=== PATIENT | male | born 1990 | race Native Hawaiian/Other Pacific Islander ===

== ENCOUNTER 2016-04-09 10:20 | Inpatient (IN) | payer OTHER ==
[~2016-04-09 10:20] MED LIST: ASCO500T18 PO; CLON0.5T36 PEG; DIVA125C PEG; LEVETIRACET100 MG/ML PEG; LEVETIRACETA500 M1 PO; LEVETIRACETA500 MG PO; LEVOCARNITINE 330 MG PO; LORAZEPAM1 MG PO; LORAZEPAM2 MG/ML OR; MAG OXIDE400 MG PEG; MAGNESIUM400 MG PO; MEGE40TA32 PEG; METAMUCIL28 % PO; MULTIVITAMI PEG; OMEP40CA PEG; TRILEPTAL300 MG/5 M OR; TRILEPTAL300 MG/5 M PEG; TUMS500 MG PO; VALPROIC A250 MG/5 M OR; VIMPAT100 MG PEG; VIMPAT200 M1 PO; VITAMIN C500 MG PEG; VITAMIN D1000 UNIT PO; ZINC50 M1 PO
== END 2016-05-10 08:00 | disposition still patient (30) ==
LOC: PAVC 10:20
PROVIDERS: ADMIT Internal Medicine
DX: Z51.89 Encounter for other specified aftercare (principal)

== ENCOUNTER 2016-05-10 09:00 | Inpatient (IN) | payer OTHER | END 2016-06-10 12:37 | disposition still patient (30) | LOC: PAVC 09:00 | PROVIDERS: ADMIT Internal Medicine | DX: Z51.89 Encounter for other specified aftercare (principal) ==

== ENCOUNTER 2016-05-15 04:38 | Outpatient (CLI) | payer OTHER ==
[2016-05-15 06:14] LABS: PLATELET COUNT 144 K/uL (142-355)
[2016-05-15 06:40] LABS: POTASSIUM 4.2 mmol/L (3.6-5.2); SODIUM 136 mmol/L (136-145)
== END 2016-05-15 05:38 | disposition home or self-care (01) ==
LOC: LAB 04:38
PROVIDERS: Internal Medicine
DX: Z79.899 Other long term (current) drug therapy (principal); Z51.81 Encounter for therapeutic drug level monitoring
CPT/HCPCS: 36415; 80053; 80164; 82542; 85027

== ENCOUNTER 2016-06-10 12:59 | Inpatient (IN) | payer OTHER | END 2016-07-08 13:22 | disposition still patient (30) | LOC: PAVC 12:59 | PROVIDERS: ADMIT Internal Medicine | DX: Z51.89 Encounter for other specified aftercare (principal) ==

== ENCOUNTER 2016-07-08 13:42 | Inpatient (IN) | payer OTHER | END 2016-08-08 08:14 | disposition still patient (30) | LOC: PAVC 13:42 | PROVIDERS: ADMIT Internal Medicine | DX: Z51.89 Encounter for other specified aftercare (principal) ==

== ENCOUNTER 2016-08-08 08:49 | Inpatient (IN) | payer OTHER | END 2016-09-07 10:59 | disposition still patient (30) | LOC: PAVC 08:49 | PROVIDERS: ADMIT Internal Medicine | DX: Z51.89 Encounter for other specified aftercare (principal) ==

== ENCOUNTER 2016-09-07 12:05 | Inpatient (IN) | payer OTHER | END 2016-10-08 10:47 | disposition still patient (30) | LOC: PAVC 12:05 | PROVIDERS: ADMIT Internal Medicine | DX: Z51.89 Encounter for other specified aftercare (principal) ==

== ENCOUNTER 2016-09-25 16:07 | Outpatient (CLI) | payer OTHER | END 2016-09-25 17:20 | disposition home or self-care (01) | LOC: LAB 16:07 | DX: R56.9 Unspecified convulsions (principal) | CPT/HCPCS: 80156; 80164; 80183; 82542 ==

== ENCOUNTER 2016-10-08 11:05 | Inpatient (IN) | payer OTHER | END 2016-11-07 16:10 | disposition still patient (30) | LOC: PAVC 11:05 | PROVIDERS: ADMIT Internal Medicine | DX: Z51.89 Encounter for other specified aftercare (principal) ==

== ENCOUNTER 2016-10-14 18:28 | Outpatient (CLI) | payer OTHER | END 2016-10-14 19:30 | disposition home or self-care (01) | LOC: LAB 18:28 | DX: K94.22 Gastrostomy infection (principal) | CPT/HCPCS: 87070; 87077; 87185; 87205 ==

== ENCOUNTER 2016-11-07 16:37 | Inpatient (IN) | payer OTHER | END 2016-12-08 13:01 | disposition still patient (30) | LOC: PAVC 16:37 | PROVIDERS: ADMIT Internal Medicine | DX: Z51.89 Encounter for other specified aftercare (principal) ==

== ENCOUNTER 2016-11-09 03:41 | Outpatient (CLI) | payer OTHER ==
[2016-11-09 04:34] LABS: POTASSIUM 4.2 mmol/L (3.6-5.2); SODIUM 141 mmol/L (136-145)
== END 2016-11-09 04:45 | disposition home or self-care (01) ==
LOC: LAB 03:41
PROVIDERS: Internal Medicine
DX: D64.89 Other specified anemias (principal); I10 Essential (primary) hypertension; R89.2 Abnormal level of other drugs, medicaments and biological substances in specimens from other organs, systems and tissues; G40.89 Other seizures
CPT/HCPCS: 36415; 80053; 80164; 82542

== ENCOUNTER 2016-11-13 03:48 | Outpatient (CLI) | payer OTHER ==
[2016-11-13 16:53] LABS: PLATELET COUNT 89 K/uL (142-355)
== END 2016-11-13 19:05 | disposition home or self-care (01) ==
LOC: LAB 03:48
PROVIDERS: Internal Medicine
DX: I10 Essential (primary) hypertension (principal); D64.89 Other specified anemias; R89.2 Abnormal level of other drugs, medicaments and biological substances in specimens from other organs, systems and tissues; G40.802 Other epilepsy, not intractable, without status epilepticus
CPT/HCPCS: 85027

== ENCOUNTER 2016-11-14 13:39 | Emergency (ER) | payer OTHER ==
[~2016-11-14] VITALS: Ht 162.6 cm; Wt 65.0 kg
[2016-11-14 13:38] VITALS: BP 123/91; TEMP 97.5
== END 2016-11-14 14:45 | disposition home or self-care (01) ==
LOC: ED 13:39
DX: S00.86XA Insect bite (nonvenomous) of other part of head, initial encounter (principal); S30.861A Insect bite (nonvenomous) of abdominal wall, initial encounter; S80.862A Insect bite (nonvenomous), left lower leg, initial encounter; S80.861A Insect bite (nonvenomous), right lower leg, initial encounter; S70.362A Insect bite (nonvenomous), left thigh, initial encounter; S70.361A Insect bite (nonvenomous), right thigh, initial encounter; W57.XXXA Bitten or stung by nonvenomous insect and other nonvenomous arthropods, initial encounter; Y93.89 Activity, other specified; Y92.128 Other place in nursing home as the place of occurrence of the external cause
CPT/HCPCS: 86787; 99282

== ENCOUNTER 2016-12-02 05:10 | Outpatient (CLI) | payer OTHER | END 2016-12-02 06:10 | disposition home or self-care (01) | LOC: LAB 05:10 | DX: B01.9 Varicella without complication (principal) | CPT/HCPCS: 86787 ==

== ENCOUNTER 2016-12-08 14:13 | Inpatient (IN) | payer OTHER | END 2017-01-08 10:00 | disposition still patient (30) | LOC: PAVC 14:13 | PROVIDERS: ADMIT Internal Medicine | DX: Z51.89 Encounter for other specified aftercare (principal) ==

== ENCOUNTER 2017-01-08 10:34 | Inpatient (IN) | payer OTHER | END 2017-02-07 09:37 | disposition still patient (30) | LOC: PAVC 10:34 | PROVIDERS: ADMIT Internal Medicine | DX: Z51.89 Encounter for other specified aftercare (principal) ==

== ENCOUNTER 2017-02-07 10:02 | Inpatient (IN) | payer OTHER | END 2017-03-10 14:21 | disposition still patient (30) | LOC: PAVC 10:02 | PROVIDERS: ADMIT Internal Medicine ==

== ENCOUNTER 2017-03-10 15:12 | Inpatient (IN) | payer OTHER | END 2017-04-09 10:31 | disposition still patient (30) | LOC: PAVC 15:12 | PROVIDERS: ADMIT Internal Medicine ==

== ENCOUNTER 2017-03-15 11:44 | Outpatient (CLI) | payer OTHER | END 2017-03-15 12:45 | disposition home or self-care (01) | LOC: LAB 11:44 | DX: G40.802 Other epilepsy, not intractable, without status epilepticus (principal) | CPT/HCPCS: 80183 ==

== ENCOUNTER 2017-03-24 11:24 | Outpatient (CLI) | payer OTHER ==
[2017-03-24 11:47] LABS: PLATELET COUNT 161 K/uL (142-355)
[2017-03-24 11:55] LABS: POTASSIUM 4.1 mmol/L (3.6-5.2); SODIUM 139 mmol/L (136-145)
== END 2017-03-24 12:25 | disposition home or self-care (01) ==
LOC: LAB 11:24
PROVIDERS: Internal Medicine
DX: R56.9 Unspecified convulsions (principal)
CPT/HCPCS: 80048; 80164; 81000; 82542; 85027

== ENCOUNTER 2017-04-09 10:59 | Inpatient (IN) | payer OTHER | END 2017-05-10 10:58 | disposition still patient (30) | LOC: PAVC 10:59 | PROVIDERS: ADMIT Internal Medicine ==

== ENCOUNTER 2017-05-10 11:50 | Inpatient (IN) | payer OTHER ==
[2017-06-11] MEDS ORDERED: DOCU PEG (18:24)
[2017-06-11] MEDS ORDERED: KONSYL PEG (18:26)
== END 2017-06-10 11:14 | disposition still patient (30) ==
LOC: PAVC 11:50
PROVIDERS: ADMIT Internal Medicine

== ENCOUNTER 2017-05-11 05:13 | Outpatient (CLI) | payer OTHER ==
[2017-05-11 06:13] LABS: PLATELET COUNT 152 K/uL (142-355)
[2017-05-11 06:42] LABS: POTASSIUM 3.9 mmol/L (3.6-5.2); SODIUM 140 mmol/L (136-145)
== END 2017-05-11 20:23 | disposition home or self-care (01) ==
LOC: LAB 05:13
PROVIDERS: Internal Medicine
DX: R68.89 Other general symptoms and signs (principal); G80.8 Other cerebral palsy
CPT/HCPCS: 36415; 80053; 80164; 82542; 85027

== ENCOUNTER 2017-05-16 15:48 | Outpatient (CLI) | payer OTHER | END 2017-05-16 18:55 | disposition home or self-care (01) | LOC: RAD 15:48 | DX: Z43.1 Encounter for attention to gastrostomy (principal) ==

== ENCOUNTER 2017-05-16 19:02 | Outpatient (CLI) | payer OTHER | END 2017-05-16 21:00 | disposition home or self-care (01) | LOC: RAD 19:02 | DX: Z43.1 Encounter for attention to gastrostomy (principal) ==

== ENCOUNTER 2017-06-10 12:33 | Inpatient (IN) | payer OTHER ==
[2017-06-11] MEDS ORDERED: DOCU PEG (18:24)
[2017-06-11] MEDS ORDERED: KONSYL PEG (18:26)
[2017-06-12] MEDS ORDERED: ORAZINC220 MG OR (11:13)
[2017-06-12] MEDS ORDERED: RANI75SY3 PO (11:15)
[2017-06-12] MEDS ORDERED: CALCIUM + D600 MG PEG (11:18)
[2017-06-12] MEDS ORDERED: MULT1 OR (11:20)
== END 2017-07-08 10:39 | disposition still patient (30) ==
LOC: PAVC 12:33
PROVIDERS: ADMIT Internal Medicine

== ENCOUNTER 2017-06-11 18:04 | Inpatient (IN) | payer OTHER ==
[~2017-06-11] VITALS: Ht 167.6 cm; Wt 56.9 kg
[2017-06-11 18:02] VITALS: BP 125/73; TEMP 99.8
[2017-06-11] MEDS ORDERED: DOCU PEG (18:24)
[2017-06-11] MEDS ORDERED: KONSYL PEG (18:26)
[2017-06-11 19:16] LABS: POTASSIUM 3.9 mmol/L (3.6-5.2)
[2017-06-11 19:20] VITALS: BP 135/71
[2017-06-11 19:36] LABS: PLATELET COUNT 264 K/uL (142-355)
[2017-06-12] VITALS (28 sets, daily range): BP systolic 80–133; BP diastolic 46–90; TEMP 98.1–102.3; Ht 167.6 cm; Wt 56.9 kg
--- NOTE | 2017-06-12 04:43 | NUR ---
06/12/17 AT 0200PT RESTING WITH EYES CLOSED, NO S/S OF PAIN OR DISTRESS NOTED, IV INTACT WITH D5LR AT 150ML/HR, O2 AT 2LPM VIA NC WITH SAT OF 100%, RESP RATE NONLABORED, 16F LUNDBERG PATENT DRAINING TO BEDSIDE WITH CLEAR, LIGHT YELLOW URINE NOTED IN BAG, DEPEND DRY, SEIZURE PRECAUTIONS IN USE, SUCTION AT BEDSIDE, HOB ELEVATED, RAILS UP X3 AND PADDED,WILL MONITOR CLOSELY, BED IN LOW POSITION.
--- NOTE | 2017-06-12 05:59 | NUR ---
PT HAVING SEIZURE AT THIS TIME, LASTED APPROX 10 SECONDS, PT SUCTIONED PRECAUTION, HOB REMAINS ELEVATED, RAILS PADDED, DEPEND DRY, LUNDBERG PATENT DRAINING TO BEDSIDE, IV INTACT TO L WRIST WITH D5LR INFUSING AT 150ML/HR, PT NOW RESTING WITH EYES CLOSED ANDD NO DISTRESS NOTED, WILL MONITOR CLOSELY, RAILS UP X3, BED IN LOW POSITION.
--- NOTE | 2017-06-12 06:19 | NUR ---
06/12/17 AT 0440PT'S AXILLARY TEMP IS 101.9. FACE IS RED. WIPED FACE WITH WET CLOTH. COVERS TAKEN OFF PT AND FAN BLOWING ON PT. SPOKE WITH DR. ZAPATA ABOUT FEVER AND PT HAVING MULTIPLE SEIZURES OVER LAST 1.5 HOURS. 0445 NEW ORDERS. TORADOL 30MG IV X 1 DOSE NOW, TYLENOL 650MG PER RECTUM Q 6 HOURS PRN FEVER, ROCEPHIN 1 GRAM IVPB Q DAY. T.O. R&V DR. ZAPATA/BREANNE BANKS RN.
--- NOTE | 2017-06-12 06:27 | NUR ---
0320PT HAVING SEIZURE, LASTED APPROX 30-45 SECONDS, PRECAUTIONS IN USE, PT SUCTIONED, STAFF REMAIN AT BEDSIDE TO MONITOR CLOSELY, RAILS UP X3, BED IN LOW POSITION, HOB REMAINS ELEVATED.
--- NOTE | 2017-06-12 07:30 | NUR ---
LAB IN FOR BLOOD DRAW,NO SEIZURE ACTIVITY AT THIS TIME.
[2017-06-12 07:49] LABS: PLATELET COUNT 189 K/uL (142-355)
--- NOTE | 2017-06-12 07:55 | NUR ---
DR ZAPATA IN TO SEE PT.NEW ORDERS.
--- NOTE | 2017-06-12 08:00 | NUR ---
PT CONTINUES TO HAVE SEIZURE ACTIVITY LASTING APPROX 30 SEC. Q 45 MIN - 1 HR. PT WITH NOTED JERKING MOTIONS & HR UP TO 140'S AT TIMES BRIEFLY. EYES CLOSE AFTER.
[2017-06-12 08:01] LABS: POTASSIUM 3.2 mmol/L (3.6-5.2)
--- NOTE | 2017-06-12 08:15 | NUR ---
IV 22G INSERTED R FOOT X 1 STICK.
--- NOTE | 2017-06-12 09:21 | NUR ---
PABLO ARMAS FAMILY CALLED TO CK ON PT.PT RESTING QUIETLY AT THIS TIME.
--- NOTE | 2017-06-12 09:35 | NUR ---
RT IN FOR ABG DRAW. PT SEIZED X1 LESS THAN 30 SECONDS.
--- NOTE | 2017-06-12 10:20 | NUR ---
PHONE CALL TO DR PACE.UNABLE TO LEAVE MESSAGE. PT CONTINUES TO HAVE SEIZURE ACTIVITY LASTING LESS THAN 30 SECODS AT THE TIME. TEMP DOWN TO 99.7R.EYES CLOSED.COLOR FLUSHED.
[2017-06-12] MEDS ORDERED: ORAZINC220 MG OR (11:13)
[2017-06-12] MEDS ORDERED: RANI75SY3 PO (11:15)
[2017-06-12] MEDS ORDERED: CALCIUM + D600 MG PEG (11:18)
[2017-06-12] MEDS ORDERED: MULT1 OR (11:20)
--- NOTE | 2017-06-12 11:49 | NUR ---
PT WITH INCREASED SEIZURE ACTIVITY STRONGER & X 2 LASTING < 30 SECONDS. TEMP IS DOWN TO 99.7.
--- NOTE | 2017-06-12 13:00 | NUR ---
TRIED TO CALL DR PACE AGAIN,UNABLE TO LEAVE VOICE MAIL.
--- NOTE | 2017-06-12 14:30 | NUR ---
DR PACE CALLED REPORTED PT'S LABS & SEIZURE ACTIVITY. DR PACE TO BE HERE SOON.
--- NOTE | 2017-06-12 16:02 | NUR ---
PABLO ARMAS/CAREGIVER CALLED TO CK ON PT. DISCUSSED NEUROLOGIST CONSULT. PABLO STATES,DR SU IS HIS NEUROLOGIST. REPORTED TO DR PACE.
--- NOTE | 2017-06-12 16:08 | NUR ---
PT TO CT VIA BED.
--- NOTE | 2017-06-12 16:15 | NUR ---
DR PACE HER TO SEE PT.
--- NOTE | 2017-06-12 16:17 | NUR ---
PT FROM CT VIA BED,STABLE.
--- NOTE | 2017-06-12 18:00 | NUR ---
PT WITH EYES OPEN,LIFTING ARMS,SMILING.
[2017-06-13] VITALS (24 sets, daily range): BP systolic 87–120; BP diastolic 40–81; TEMP 97.4–98.8
--- NOTE | 2017-06-13 02:19 | NUR ---
RESTING WITH EYES CLOSED, NO S/S OF PAIN OR DISTRESS NOTED, IV INTACT TO L WRIST WITH FLUID ONGOING, IV LOCK INTACT TO R FOOT, 16F LUNDBERG PATENT DRAINING TO BEDSIDE, DEPEND DRY, SEIZURE PRECAUTIONS IN USE, FEET ELEVATED ON PILLOWS, REPOSITIONED TO R SIDE, HOB REMAINS ELEVATED, RAILS PADDED, AND SUCTION AT BEDSIDE, PT ON ROOM AIR WITH SATOF %, WILL MONITOR, RAILS UP X3, BED IN LOW POSITION.
--- NOTE | 2017-06-13 02:21 | NUR ---
06/12/17 AT 1935PT LAYING IN BED WITH EYES CLOSED, NO S/S OF PAIN OR DISTRESS, SEIZURE PRECAUTIONS IN USE, HOB ELEVATED, IV SITES INTACT, LUNDBERG PATENT DRAINING TO BEDSIDE WITH CLEAR, LIGHT YELLOW URINE NOTED, FEET ELEVATED ON PILLOWS, RECTAL PROBE IN USE TO MONITOR PT'S TEMP, VITALS BEING MONITORED, PT OPENS EYES TO BLENDING PLANT OPERATOR TOUCHING HIM. WILL MONITOR, RAILS UP X3, BED IN LOW POSITION.
--- NOTE | 2017-06-13 04:35 | NUR ---
LATE ENTRY:06/11/17 AT 2315PT ADMITTED FROM ER FOR INTRACTABLE SEIZURES, CONTRACTURES, CEREBRAL PALSY TO ICU 1. 26 YR OLD RESIDENT OF [place]IN. NO S/S OF PAIN OR DISTRESS NOTED AT THIS TIME, 20G IV INTACT TO R HAND WITH BAG OF NS BROUGHT FROM ER(3RD LITER), 16 F LUNDBERG PATENT DRAINING TO BEDSIDE WITH APPROX 600ML OF CLEAR LIGHT YELLOW URINE NOTED, O2 PLACED AT 2LPM VIA NC, RESP RATE NONLABORED, PT OPENS EYES BUT DOES NOT RESPOND VERBALLY OR FOLLOW COMMANDS, ASPIRATION PRECAUTIONS TAKEN AND ALSO SEIZURE PRECAUTIONS, SIDE RAILS PADDED, SUCTION AT BEDSIDE, FEET ON PILLOW, WILL MONITOR, RAILS UP X3, BED IN LOW POSITION, HOB REMAINS ELEVATED.
--- NOTE | 2017-06-13 04:40 | NUR ---
LATE ENTRY: 06/11/17 AT 2332PT HAVING SEIZURE THAT LASTED APPROX 45 SEC TO 1 MINUTE, PT R ARM STARTED SHAKING AND THEN HEAD TURNED TO R AND REST OF BODY BEGAN TO SHAKE. EYES BLINKING OFTEN. PULSE RATE WAS 120S AND DURING SEIZURE PULSE RATE IN 150S THEN RATE WENT BACK DOWN. 2335 PT NOW RESTING WITH NO DISTRESS OR SEIZURES NOTED. PT SUCTIONED PRECAUTION AND HOB REMAINS IN HIGH ESCOBAR'S. SPINNING AND WINDING SUPERVISOR REMAINS AT BEDSIDE.
--- NOTE | 2017-06-13 04:44 | NUR ---
LATE ENTRY: 06/12/[address] JODI AT BEDSIDE TO CHECK ON PT. 06/12/17 AT 0227PT HAD ANOTHER SEIZURE THAT LASTED APPROX 30-45 SECONDS. PT SUCTIONED, SEIZURE AND ASPIRATION PRECAUTIONS IN USE. WILL MONITOR CLOSELY. 06/12/17 AT 0345PT HAVING ANOTHER SEIZURE THAT LASTED 20 SECONDS, PT SUCTIONED AND REPOSITIONED IN BED AFTER SEIZURE, LAYING WITH HOB IN HIGH ESCOBAR'S AND EYES OPEN, O2 VIA NC WITH SAT OF 96% AFTER SEIZURE, PRECAUTIONS REMAIN IN USE AND PT HAS NO EVIDENT INJURY,WILL CONTINUE TO MONITOR CLOSELY.
--- NOTE | 2017-06-13 04:53 | NUR ---
LATE ENTRY: 06/12/17 AT 0411PT HAS SEIZURE THAT LASTED APPROX 10 SECONDS. 0437PT HAD SEIZURE THAT WAS APPROX 15-20 SECONDS, PRECAUTIONS REMAIN IN USE, LUNDBERG PATENT,DEPEND DRY, HOB ELEVATED, NO ACUTE DISTRESS AFTER SEIZURE, O2 IN USE, WILL MONITOR, RAILS UP X3, BED IN LOW POSITION. PT SUCTIONED AFTER SEIZURE.
--- NOTE | 2017-06-13 06:11 | NUR ---
PT AWAKE LAYING IN BED WITH EYES OPEN, NO S/S OF PAIN OR DISTRESS, BOTH IV SITES INTACT, ON ROOM AIR WITH SAT OF 100%, 16F LUNDBERG PATENT DRAINING TO BEDSIDE, FEET ELEVATED ON PILLOW, PT REPOSITIONED TO L SIDE, SEIZURE AND ASPIRATION PRECAUTIONS REMAIN IN USE, RECTAL PROBE SHOW TEMP OF 98.9. WILL MONITOR CLOSELY. MOVING L ARM AROUND IN THE AIR AT TIMES.
--- NOTE | 2017-06-13 07:00 | NUR ---
REPORT FROM PM STAFF.PT RESTING IN BED WITH EYES OPEN.NO SEIZURE ACTIVITY.
--- NOTE | 2017-06-13 08:17 | NUR ---
06/13/17 0400MOUTH CARE GIVEN AND LIPS MOISTURIZED.
--- NOTE | 2017-06-13 08:18 | NUR ---
06/12/17 AT 2350MOUTH CARE COMPLETED AND LIPS MOISTURIZED.
[2017-06-13 09:51] LABS: PLATELET COUNT 159 K/uL (142-355)
--- NOTE | 2017-06-13 09:55 | NUR ---
PHONE CALL TO DR PACE R/T PHENOBARB ORDER & FEEDINS PER GT,NEW ORDER.
[2017-06-13 10:02] LABS: POTASSIUM 2.9 mmol/L (3.6-5.2)
--- NOTE | 2017-06-13 11:30 | NUR ---
FED PT 1/2 CAN JEVITY PER G/T,FLUSHED WITH H20 PER ORDER.PT TOLERATED WELL.
--- NOTE | 2017-06-13 12:30 | NUR ---
LABS TO DR PACE, PT RESTING QUIETLY WITH EYES CLOSED,NO SEIZURE ACTIVITY.
--- NOTE | 2017-06-13 14:00 | NUR ---
PT RESTING WITH NO NOTED SEIZURE ACTIVITY,MOUTH CARE REPEATED Q2HRS.PT IS A MOUTH BREATHER.PT TURNED & REPOSITIONED FOR COMFORT.
--- NOTE | 2017-06-13 17:00 | NUR ---
MESSAGE LEFT FOR DR PACE TO CALL BACK.
--- NOTE | 2017-06-13 18:42 | NUR ---
DR PACE IN TO SEE PT,PT ASLEEP.PT WILL NOT OPEN EYES FOR DR PACE. PHENOBARB HELD,NEW ORDERS FOR LABS. PT FED 120 ML JEVITY & FLUSHED WITH H2O PER DR'S ORDER. PT WITH BM PERICARE. PT OPENED EYES WHEN TURNED.
[2017-06-14] VITALS (22 sets, daily range): BP systolic 99–135; BP diastolic 54–85; TEMP 97.6–99.2
--- NOTE | 2017-06-14 02:32 | NUR ---
06/13/17 AT 2200PT RESTING WITH EYES CLOSED, NO S/S OF PAIN OR DISTRESS NOTED, NO SEIZURES NOTED, SEIZURE AND ASPIRATION PRECAUTIONS IN USE, RAILS PADDED, 16F LUNDBERG PATENT DRAINING TO BEDSIDE WITH CLEAR YELLOW URINE NOTED, FEET ELEVATED ON PILLOW, ON ROOM AIR WITH SAT OF 98-99%, IV LOCK INTACT TO R FOOT AND 22 G INTACT TO L WRIST WITH FLUID ONGOING PER ORDERS, REPOSITIONED TO BACK, WILL MONITOR, RAILS UP X3, BED IN LOW POSITION, HOB ELEVATED.
--- NOTE | 2017-06-14 02:40 | NUR ---
06/13/17 FROM 2340 UNITL 06/14/17 AT 0010 PT RESTING WITH EYES CLOSED, NO DISTRESS NOTED, IV SITES INTACT, RESP RATE NONLABORED. DEPEND CHANGED, NOTE MEDIUM LOOSE BM. PT GIVEN A GOOD BED BATH, APPLIED LOTION AND DEODERANT, MOUTH CARE COMPLETED AND LIPS MOISTURIZED. GOWN, TOP SHEET, DRAW SHEET, AND PILLOW CASES CHANGED. FACE WASHED AND HAIR COMBED. SOCKS APPLIED TO FEET. REPOSITIONED TO R SIDE WITH PILLOW BETWEEN LEGS, HOB ELEVATED, HANDS ELEVATED ON PILLOWS, WILL MONITOR CLOSELY.
--- NOTE | 2017-06-14 02:58 | NUR ---
0225PT RESTING WITH EYES CLOSED, NO S/S OF PAIN OR DISTRESS NOTED, IV SITES INTACT, LUNDBERG PATENT, RESP RATE NONLABORED ON ROOM AIR, REPOSITIONED TO BACK, FEET AND HANDS ELEVATED ON PILLOWS, PT OPENS EYES FOR A FEW SECONDS BUT REMAINS DROWSY WHEN AWAKE. HOB ELEVATED, RAILS UP X3, BED IN LOW POSITION, DEPEND CLEAN.
--- NOTE | 2017-06-14 03:02 | NUR ---
0300DR. JODI IN TO CHECK ON PT.
[2017-06-14 06:59] LABS: PLATELET COUNT 177 K/uL (142-355)
--- NOTE | 2017-06-14 07:23 | NUR ---
DR COLUNGA IN TO SEE PT
--- NOTE | 2017-06-14 08:17 | NUR ---
06/14/17 AT 0620L ARM RED AND WARM TO TOUCH, IV FLUID GOING IN IV IN L WRIST STOPPED AT THIS TIME. BLOOD RETURN NOTED BUT CONCERNED WITH IV STATUS. PT AWAKE LAYING IN BED WITH EYES OPEN, NO S/S OF PAIN OR DISTRESS NOTED, IV LOCK INTACT TO R FOOT, LUNDBERG PATENT DRAINING TO BEDSIDE, FEET ELEVATED ON PILLOW, SEIZURE PRECAUTIONS IN USE, PT SEEM MORE AWAKE THIS MORNING, WILL MONITOR, RAILS UP, BED IN LOW POSITION.
--- NOTE | 2017-06-14 08:19 | NUR ---
22G RINNER ARM X1 STICK, PT TOLERATED WELL. 22G REMOVED FROM LW DUE REDNESS, BLOOD RETURN NOTED. WILL CONT TOO MONITOR SITE
--- NOTE | 2017-06-14 08:28 | NUR ---
06/13/17 AT 1945RESTING IN BED WITH EYES CLOSED, NO S/S OF PAIN OR DISTRESS NOTED, BOTH IV SITES INTACT, LUNDBERG PATENT DRAINING TO BEDSIDE, FEET ELEVATED ON PILLOW, RESP RATE NONLABORED AND NORMAL, ON ROOM AIR, VITALS BEING MONITORED, PEG TUBE INTACT, WILL MONITOR, RAILS UP X3, BED IN LOW POSITION, RAILS PADDED, SEIZURE AND ASPIRATION PRECAUTIONS IN USE.
[2017-06-14 08:46] LABS: POTASSIUM 3.8 mmol/L (3.6-5.2)
--- NOTE | 2017-06-14 09:10 | NUR ---
NO RESIDUAL NOTED VIA NGT. SITE FLUSHED W/60ML H20 BEFORE AND AFTER MEDS/FEEDING. PT TOLERATED WELL. HOB UP 60 DEGREES.
--- NOTE | 2017-06-14 12:30 | NUR ---
PT INCONT OF STOOL, PT CLEANED AND DRYED.
--- NOTE | 2017-06-14 13:56 | NUR ---
PT LYING ON BACK IN THE BED WITH EYES CLOSED. NAD NOTED. WILL CONTINUE TO MONITOR.
--- NOTE | 2017-06-14 16:30 | NUR ---
DR COLUNGA GIVEN AN UPDATE ON PTS STATUS.
[2017-06-15] VITALS (24 sets, daily range): BP systolic 103–131; BP diastolic 52–83; TEMP 66–979
[2017-06-15 06:56] LABS: PLATELET COUNT 185 K/uL (142-355)
[2017-06-15 08:15] LABS: POTASSIUM 4.1 mmol/L (3.6-5.2)
--- NOTE | 2017-06-15 22:53 | NUR ---
PT ADMITTED TO PCU2 AT 2250PM. 69 YEAR OLD BLACK FEMALE ADMITTED WITH CHF.
[2017-06-16] VITALS (9 sets, daily range): BP systolic 108–134; BP diastolic 60–98; TEMP 97.4–98.9
--- NOTE | 2017-06-16 04:44 | NUR ---
NO SEIZURE ACTIVITY AND NO FEVER THIS SHIFT.
--- NOTE | 2017-06-16 05:41 | NUR ---
PT HAS BEEN ALERT LOKKING AROUND . MOUTH CARE PERFORM. ABLE TO GET 20 ML OF WATER ORAL. LIPS WERE LUBRICATED. WASHED PT'S FACE. CLEAN GOWN PLACED ON PT. ATTEMPT X2 UNSUCCESSFUL.
--- NOTE | 2017-06-16 07:15 | NUR ---
DR THERON HARDY IN TO PT. [facility]. PT SITTING UP WITH EYES OPEN MAKING EYE CONTACT,SITTING SELF UP IN BED AT TIMES.
[2017-06-16 07:51] LABS: POTASSIUM 4.2 mmol/L (3.6-5.2)
[2017-06-16 08:01] LABS: PLATELET COUNT 180 K/uL (142-355)
--- NOTE | 2017-06-16 10:49 | NUR ---
REPORT CALLED TO MARINE GUERRA LPN AT [facility].
--- NOTE | 2017-06-16 11:15 | NUR ---
PERICARE FOR BM,PT SPONGED OFF, NOTED SL REDNESS TO BUTTOCKS & PERIAREA.CALAZINE TO PERIAREA. ADULT BRIEF LEFT OFF PT. IV D/C'D PER ALEC BARNES RN.SITE SECURED.
--- NOTE | 2017-06-16 11:24 | NUR ---
[facility] PER LATONYA BARNES RN & JOSEPHINE SHARMA.
--- NOTE | 2017-06-16 12:30 | NUR ---
FAMILY NOTIFIED OF TRANSFER BACK TO [facility].
== END 2017-06-16 11:24 | DRG 101 ==
LOC: ED 18:04 → ICU 20:37
PROVIDERS: Family Medicine; Internal Medicine; ADMIT Specialist
DX: G40.801 Other epilepsy, not intractable, with status epilepticus (principal); F79 Unspecified intellectual disabilities; M62.81 Muscle weakness (generalized); G80.8 Other cerebral palsy; R13.19 Other dysphagia; E87.6 Hypokalemia; D72.828 Other elevated white blood cell count; R53.83 Other fatigue; R31.29 Other microscopic hematuria
CPT/HCPCS: 36415; 36600; 51702; 80053; 80164; 80183; 80184; 80339; 81000; 82542; 82805; 83605; 83735; 84100; 85027; 87040; 87070; 87205; 87804; 93005; 94664; 94760; 96361; 96365; 96375; 96376; 99285; J1165; J1720; J1885; J2060; J2560; J3490

== ENCOUNTER 2017-07-08 11:01 | Inpatient (IN) | payer OTHER ==
[~2017-07-08 11:01] MED LIST changes: +CALCIUM + D600 MG PEG; +DOCU PEG; +KONSYL PEG; +MULT1 OR; +ORAZINC220 MG OR; +RANI75SY3 PO
[2017-07-21] MEDS ORDERED: LORA2INJ21 INJ (13:37)
[2017-07-21] MEDS ORDERED: BANOPHEN25 M1 PEG (13:38)
== END 2017-08-08 08:00 | disposition still patient (30) ==
LOC: PAVC 11:01
PROVIDERS: ADMIT Internal Medicine
DX: N39.0 Urinary tract infection, site not specified (principal); R65.20 Severe sepsis without septic shock; G40.919 Epilepsy, unspecified, intractable, without status epilepticus; M62.81 Muscle weakness (generalized); R13.10 Dysphagia, unspecified; J01.90 Acute sinusitis, unspecified; F79 Unspecified intellectual disabilities; F84.0 Autistic disorder; G80.9 Cerebral palsy, unspecified
CPT/HCPCS: 36415; 80164

== ENCOUNTER 2017-07-21 10:05 | Inpatient (IN) | payer OTHER ==
[2017-07-21] VITALS (32 sets, daily range): BP systolic 80–125; BP diastolic 40–69; TEMP 97.7–103.4
[~2017-07-21] VITALS: Ht 167.6 cm; Wt 56.4 kg
[2017-07-21 10:47] LABS: PLATELET COUNT 213 K/uL (142-355)
[2017-07-21 10:48] LABS: POTASSIUM 3.6 mmol/L (3.6-5.2)
[2017-07-21] MEDS ORDERED: LORA2INJ21 INJ (13:37)
[2017-07-21] MEDS ORDERED: BANOPHEN25 M1 PEG (13:38)
[2017-07-22] VITALS (23 sets, daily range): BP systolic 80–126; BP diastolic 40–87; TEMP 98–98.7
[2017-07-22 06:30] LABS: PLATELET COUNT 128 K/uL (142-355)
[2017-07-22 06:40] LABS: POTASSIUM 3.6 mmol/L (3.6-5.2)
[2017-07-23] VITALS (21 sets, daily range): BP systolic 82–121; BP diastolic 58–95; TEMP 97.5–98.9
[2017-07-23 06:42] LABS: PLATELET COUNT 134 K/uL (142-355)
[2017-07-23 06:57] LABS: POTASSIUM 3.3 mmol/L (3.6-5.2)
[2017-07-24] VITALS (23 sets, daily range): BP systolic 83–111; BP diastolic 44–93; TEMP 97.5–100.2
[2017-07-24 06:41] LABS: PLATELET COUNT 43 K/uL (142-355)
[2017-07-24 06:54] LABS: POTASSIUM 3.3 mmol/L (3.6-5.2)
[2017-07-25] VITALS (24 sets, daily range): BP systolic 68–117; BP diastolic 49–86; TEMP 98.6–99
[2017-07-25 07:26] LABS: PLATELET COUNT 161 K/uL (142-355)
[2017-07-25 08:15] LABS: POTASSIUM 3.6 mmol/L (3.6-5.2)
[2017-07-26] VITALS (17 sets, daily range): BP systolic 90–119; BP diastolic 52–81; TEMP 97.9–99.2
[2017-07-26 06:55] LABS: POTASSIUM 3.6 mmol/L (3.6-5.2)
== END 2017-07-26 15:20 | DRG 101 ==
LOC: ED 10:05 → ICU 12:40
PROVIDERS: Internal Medicine; ADMIT Emergency Medicine
DX: G40.401 Other generalized epilepsy and epileptic syndromes, not intractable, with status epilepticus (principal); F84.0 Autistic disorder; M62.82 Rhabdomyolysis; K94.22 Gastrostomy infection; G80.8 Other cerebral palsy; D72.828 Other elevated white blood cell count; E88.89 Other specified metabolic disorders; F78 Other intellectual disabilities; R50.9 Fever, unspecified; D69.6 Thrombocytopenia, unspecified; B96.5 Pseudomonas (aeruginosa) (mallei) (pseudomallei) as the cause of diseases classified elsewhere
CPT/HCPCS: 36415; 36430; 80048; 80053; 80164; 81000; 81002; 82542; 82550; 82553; 83605; 83735; 85027; 87040; 87070; 87077; 87186; 87205; 87804; 94760; 96365; 96366; 96372; 96375; 99285; J0696; J1885; J2060; Q2009

== ENCOUNTER 2017-08-04 10:30 | Outpatient (CLI) | payer OTHER ==
[~2017-08-04 10:30] MED LIST changes: +BANOPHEN25 M1 PEG; +LORA2INJ21 INJ
== END 2017-08-04 18:11 | disposition home or self-care (01) ==
LOC: LAB 10:30
DX: Z79.899 Other long term (current) drug therapy (principal); Z51.81 Encounter for therapeutic drug level monitoring
CPT/HCPCS: 36415; 80164

== ENCOUNTER 2017-08-08 09:00 | Inpatient (IN) | payer OTHER | END 2017-09-07 10:29 | disposition still patient (30) | LOC: PAVC 09:00 | PROVIDERS: ADMIT Internal Medicine ==

== ENCOUNTER 2017-09-07 10:57 | Inpatient (IN) | payer OTHER | END 2017-10-08 10:25 | disposition still patient (30) | LOC: PAVC 10:57 | PROVIDERS: ADMIT Internal Medicine ==

== ENCOUNTER 2017-10-04 15:09 | Emergency (ER) | payer OTHER ==
[~2017-10-04] VITALS: Ht 162.6 cm; Wt 54.9 kg
[2017-10-04 16:48] LABS: PLATELET COUNT 173 K/uL (142-355)
[2017-10-04 17:01] LABS: POTASSIUM 4.2 mmol/L (3.6-5.2)
[2017-10-04 23:40] VITALS: BP 121/69; TEMP 98.4
== END 2017-10-04 23:40 | disposition home or self-care (01) ==
LOC: ED 15:09
PROC: 0T9B70Z Drainage of Bladder with Drainage Device, Via Natural or Artificial Opening (ICD-10-PCS; principal; 2017-10-04)
DX: R56.9 Unspecified convulsions (principal)
CPT/HCPCS: 36415; 51702; 80053; 80164; 80339; 82542; 85027; 96360; 99284

== ENCOUNTER 2017-10-08 10:53 | Inpatient (IN) | payer OTHER | END 2017-11-07 15:06 | disposition still patient (30) | LOC: PAVC 10:53 | PROVIDERS: ADMIT Internal Medicine ==

== ENCOUNTER 2017-11-07 15:35 | Inpatient (IN) | payer OTHER | END 2017-12-08 08:00 | disposition still patient (30) | LOC: PAVC 15:35 | PROVIDERS: ADMIT Internal Medicine ==

== ENCOUNTER 2017-11-12 06:43 | Outpatient (CLI) | payer OTHER | END 2017-11-12 19:03 | disposition home or self-care (01) | LOC: LAB 06:43 | DX: R68.89 Other general symptoms and signs (principal); Z51.81 Encounter for therapeutic drug level monitoring | CPT/HCPCS: 80164; 82542 ==

== ENCOUNTER 2017-11-23 05:34 | Outpatient (CLI) | payer OTHER ==
[2017-11-23 07:24] LABS: PLATELET COUNT 160 K/uL (142-355)
[2017-11-23 07:50] LABS: POTASSIUM 4.5 mmol/L (3.6-5.2)
== END 2017-11-23 23:43 | disposition home or self-care (01) ==
LOC: LAB 05:34
PROVIDERS: Internal Medicine
DX: R13.12 Dysphagia, oropharyngeal phase (principal); M62.81 Muscle weakness (generalized); G40.909 Epilepsy, unspecified, not intractable, without status epilepticus
CPT/HCPCS: 80053; 85027

== ENCOUNTER 2017-12-08 09:00 | Inpatient (IN) | payer OTHER | END 2018-01-08 11:12 | disposition still patient (30) | LOC: PAVC 09:00 | PROVIDERS: ADMIT Internal Medicine ==

== ENCOUNTER 2017-12-22 10:28 | Emergency (ER) | payer OTHER ==
[~2017-12-22] VITALS: Ht 162.6 cm; Wt 55.8 kg
[2017-12-22 10:28] VITALS: BP 94/63; TEMP 98.2
[2017-12-22 11:35] LABS: PLATELET COUNT 191 K/uL (142-355)
[2017-12-22 11:41] LABS: POTASSIUM 3.9 mmol/L (3.6-5.2)
== END 2017-12-22 14:43 ==
LOC: ED 10:28
DX: R56.9 Unspecified convulsions (principal)
CPT/HCPCS: 36415; 80053; 81000; 85027; 87040; 96360; 96361; 99284

== ENCOUNTER 2018-01-08 11:39 | Inpatient (IN) | payer OTHER | END 2018-02-07 14:37 | disposition still patient (30) | LOC: PAVC 11:39 | PROVIDERS: ADMIT Internal Medicine ==

== ENCOUNTER 2018-01-26 10:38 | Day surgery (SDC) | payer OTHER | END 2018-01-26 12:30 | LOC: OR 10:38 | DX: Z53.9 Procedure and treatment not carried out, unspecified reason (principal) ==

== ENCOUNTER 2018-02-07 15:51 | Inpatient (IN) | payer OTHER | END 2018-03-10 10:34 | disposition still patient (30) | LOC: PAVC 15:51 | PROVIDERS: ADMIT Internal Medicine ==

== ENCOUNTER 2018-03-05 17:36 | Outpatient (CLI) | payer OTHER ==
[2018-03-05 18:37] LABS: PLATELET COUNT 270 K/uL (142-355)
[2018-03-05 19:15] LABS: POTASSIUM 3.9 mmol/L (3.6-5.2)
== END 2018-03-05 19:48 | disposition home or self-care (01) ==
LOC: LAB 17:36
PROVIDERS: Internal Medicine
DX: G40.89 Other seizures (principal); R79.89 Other specified abnormal findings of blood chemistry
CPT/HCPCS: 80053; 80164; 80183; 81000; 82542; 83605; 85027; 87040

== ENCOUNTER 2018-03-05 22:02 | Outpatient (CLI) | payer OTHER | END 2018-03-05 23:00 | disposition home or self-care (01) | LOC: RAD 22:02 | DX: G40.802 Other epilepsy, not intractable, without status epilepticus (principal); R79.89 Other specified abnormal findings of blood chemistry ==

== ENCOUNTER 2018-03-05 22:14 | Outpatient (CLI) | payer OTHER | END 2018-03-05 23:00 | disposition home or self-care (01) | LOC: LAB 22:14 | DX: G40.89 Other seizures (principal); R79.89 Other specified abnormal findings of blood chemistry | CPT/HCPCS: 83605; 87040 ==

== ENCOUNTER 2018-03-10 11:36 | Inpatient (IN) | payer OTHER | END 2018-04-09 07:22 | disposition still patient (30) | LOC: PAVC 11:36 | PROVIDERS: ADMIT Internal Medicine ==

== ENCOUNTER 2018-03-24 05:41 | Outpatient (CLI) | payer OTHER | END 2018-03-24 19:26 | disposition home or self-care (01) | LOC: LAB 05:41 | DX: E55.9 Vitamin D deficiency, unspecified (principal); E61.2 Magnesium deficiency | CPT/HCPCS: 36415; 82306; 83735 ==

== ENCOUNTER 2018-04-09 07:52 | Inpatient (IN) | payer OTHER | END 2018-05-10 09:37 | disposition still patient (30) | LOC: PAVC 07:52 | PROVIDERS: ADMIT Internal Medicine ==

== ENCOUNTER 2018-05-10 10:03 | Inpatient (IN) | payer OTHER | END 2018-06-10 09:39 | disposition still patient (30) | LOC: PAVC 10:03 | PROVIDERS: ADMIT Internal Medicine ==

== ENCOUNTER 2018-05-23 04:40 | Outpatient (CLI) | payer OTHER ==
[2018-05-23 04:58] LABS: PLATELET COUNT 174 K/uL (142-355)
[2018-05-23 05:15] LABS: POTASSIUM 4.3 mmol/L (3.6-5.2)
== END 2018-05-23 22:15 | disposition home or self-care (01) ==
LOC: LAB 04:40
PROVIDERS: Internal Medicine
DX: E55.9 Vitamin D deficiency, unspecified (principal); G40.909 Epilepsy, unspecified, not intractable, without status epilepticus; Z51.81 Encounter for therapeutic drug level monitoring
CPT/HCPCS: 80053; 80164; 82306; 82542; 85027

== ENCOUNTER 2018-06-10 10:24 | Inpatient (IN) | payer OTHER | END 2018-07-08 13:47 | disposition still patient (30) | LOC: PAVC 10:24 | PROVIDERS: ADMIT Internal Medicine ==

== ENCOUNTER 2018-07-08 14:22 | Inpatient (IN) | payer OTHER | END 2018-08-08 12:31 | disposition still patient (30) | LOC: PAVC 14:22 | PROVIDERS: ADMIT Internal Medicine ==

== ENCOUNTER 2018-08-08 12:55 | Inpatient (IN) | payer OTHER | END 2018-09-07 13:43 | disposition still patient (30) | LOC: PAVC 12:55 | PROVIDERS: ADMIT Internal Medicine ==

== ENCOUNTER 2018-08-29 13:17 | Outpatient (CLI) | payer OTHER | END 2018-08-29 19:42 | disposition home or self-care (01) | LOC: LAB 13:17 | DX: K94.22 Gastrostomy infection (principal) | CPT/HCPCS: 87070; 87077; 87186; 87205 ==

== ENCOUNTER 2018-09-07 14:16 | Inpatient (IN) | payer OTHER | END 2018-10-08 09:40 | disposition still patient (30) | LOC: PAVC 14:16 | PROVIDERS: ADMIT Internal Medicine | DX: Z51.89 Encounter for other specified aftercare (principal) ==

== ENCOUNTER 2018-09-09 06:15 | Outpatient (CLI) | payer OTHER | END 2018-09-09 19:56 | disposition home or self-care (01) | LOC: LAB 06:15 | DX: Z51.81 Encounter for therapeutic drug level monitoring (principal); E55.9 Vitamin D deficiency, unspecified; E61.2 Magnesium deficiency | CPT/HCPCS: 80183; 82306; 83735 ==

== ENCOUNTER 2018-09-29 03:38 | Outpatient (CLI) | payer OTHER | END 2018-09-29 20:45 | disposition home or self-care (01) | LOC: LAB 03:38 → LABW 03:38 → LAB 20:45 | DX: Z51.81 Encounter for therapeutic drug level monitoring (principal) | CPT/HCPCS: 36415; 80164; 82542 ==

== ENCOUNTER 2018-10-08 10:09 | Inpatient (IN) | payer OTHER | END 2018-11-07 12:20 | disposition still patient (30) | LOC: PAVC 10:09 | PROVIDERS: ADMIT Internal Medicine ==

== ENCOUNTER 2018-11-02 12:09 | Outpatient (CLI) | payer OTHER | END 2018-11-02 23:29 | disposition home or self-care (01) | LOC: LAB 12:09 | DX: Z51.81 Encounter for therapeutic drug level monitoring (principal) | CPT/HCPCS: 36415; 80164; 80183; 82542 ==

== ENCOUNTER 2018-11-03 00:27 | Emergency (ER) | payer OTHER ==
[~2018-11-03] VITALS: Ht 167.6 cm; Wt 61.7 kg
[2018-11-03 01:01] LABS: PLATELET COUNT 147 K/uL (142-355)
[2018-11-03 01:07] LABS: POTASSIUM 3.2 mmol/L (3.6-5.2)
[2018-11-03 01:30] VITALS: BP 106/77
[2018-11-03 02:00] VITALS: TEMP 97.5
== END 2018-11-03 02:00 | disposition home or self-care (01) ==
LOC: ED 00:34
PROVIDERS: Emergency Medicine
DX: R25.1 Tremor, unspecified (principal)
CPT/HCPCS: 80053; 81000; 85027; 99283

== ENCOUNTER 2018-11-07 12:36 | Inpatient (IN) | payer OTHER | END 2018-12-08 12:32 | disposition still patient (30) | LOC: PAVC 12:36 | PROVIDERS: ADMIT Internal Medicine ==

== ENCOUNTER 2018-11-16 03:49 | Outpatient (CLI) | payer OTHER ==
[2018-11-16 06:28] LABS: POTASSIUM 4.8 mmol/L (3.6-5.2)
[2018-11-17 06:27] LABS: PLATELET COUNT 157 K/uL (142-355)
== END 2018-11-16 22:30 | disposition home or self-care (01) ==
LOC: LAB 03:49
PROVIDERS: Internal Medicine
DX: G40.802 Other epilepsy, not intractable, without status epilepticus (principal); G80.8 Other cerebral palsy; Z51.81 Encounter for therapeutic drug level monitoring
CPT/HCPCS: 36415; 80053; 80164; 82542; 85027

== ENCOUNTER 2018-12-08 14:20 | Inpatient (IN) | payer OTHER | END 2019-01-08 17:17 | disposition still patient (30) | LOC: PAVC 14:20 | PROVIDERS: ADMIT Internal Medicine ==

== ENCOUNTER 2019-01-08 17:45 | Inpatient (IN) | payer OTHER | END 2019-02-07 12:58 | disposition still patient (30) | LOC: PAVC 17:45 | PROVIDERS: ADMIT Internal Medicine ==

== ENCOUNTER 2019-02-07 13:35 | Inpatient (IN) | payer OTHER | END 2019-03-10 14:16 | disposition still patient (30) | LOC: PAVC 13:35 | PROVIDERS: ADMIT Internal Medicine ==

== ENCOUNTER 2019-03-10 14:56 | Inpatient (IN) | payer OTHER | END 2019-04-09 08:00 | disposition still patient (30) | LOC: PAVC 14:56 | PROVIDERS: ADMIT Internal Medicine ==

== ENCOUNTER 2019-03-17 04:09 | Outpatient (CLI) | payer OTHER | END 2019-03-17 22:14 | disposition home or self-care (01) | LOC: LAB 04:09 | DX: E55.9 Vitamin D deficiency, unspecified (principal); E61.2 Magnesium deficiency; Z51.81 Encounter for therapeutic drug level monitoring | CPT/HCPCS: 80183; 82306; 83735 ==

== ENCOUNTER 2019-04-09 11:00 | Inpatient (IN) | payer OTHER | END 2019-05-10 09:31 | disposition still patient (30) | LOC: PAVC 11:00 | PROVIDERS: ADMIT Internal Medicine ==

== ENCOUNTER 2019-05-10 10:02 | Inpatient (IN) | payer OTHER | END 2019-06-10 10:46 | disposition still patient (30) | LOC: PAVC 10:02 | PROVIDERS: ADMIT Internal Medicine ==

== ENCOUNTER 2019-05-15 05:04 | Outpatient (CLI) | payer OTHER ==
[2019-05-15 06:23] LABS: POTASSIUM 4.1 mmol/L (3.6-5.2)
[2019-05-15 06:26] LABS: PLATELET COUNT 137 K/uL (142-355)
== END 2019-05-15 22:30 | disposition home or self-care (01) ==
LOC: LAB 05:04
PROVIDERS: Internal Medicine
DX: G40.919 Epilepsy, unspecified, intractable, without status epilepticus (principal); G40.309 Generalized idiopathic epilepsy and epileptic syndromes, not intractable, without status epilepticus; Z93.1 Gastrostomy status
CPT/HCPCS: 80053; 80164; 82542; 85027

== ENCOUNTER 2019-06-10 11:16 | Inpatient (IN) | payer OTHER | END 2019-07-09 14:11 | disposition still patient (30) | LOC: PAVC 11:16 | PROVIDERS: ADMIT Internal Medicine ==

== ENCOUNTER 2019-07-09 14:42 | Inpatient (IN) | payer OTHER | END 2019-08-09 11:44 | disposition still patient (30) | LOC: PAVC 14:42 | PROVIDERS: ADMIT Internal Medicine ==

== ENCOUNTER 2019-08-09 12:15 | Inpatient (IN) | payer OTHER | END 2019-09-08 11:23 | disposition still patient (30) | LOC: PAVC 12:15 | PROVIDERS: ADMIT Internal Medicine ==

== ENCOUNTER 2019-09-08 11:58 | Inpatient (IN) | payer OTHER | END 2019-10-09 11:22 | disposition still patient (30) | LOC: PAVC 11:58 | PROVIDERS: ADMIT Internal Medicine | CPT/HCPCS: 87635; U0002 ==

== ENCOUNTER 2019-09-13 11:28 | Outpatient (CLI) | payer OTHER | END 2019-09-13 20:57 | disposition home or self-care (01) | LOC: LAB 11:28 | DX: G80.9 Cerebral palsy, unspecified (principal); G40.919 Epilepsy, unspecified, intractable, without status epilepticus | CPT/HCPCS: 80183; 82306; 83735 ==

== ENCOUNTER 2019-10-09 11:49 | Inpatient (IN) | payer OTHER | END 2019-11-08 11:56 | disposition still patient (30) | LOC: PAVC 11:49 | PROVIDERS: ADMIT Internal Medicine | CPT/HCPCS: 87635; U0002 ==

== ENCOUNTER 2019-11-01 06:14 | Outpatient (CLI) | payer OTHER | END 2019-11-01 19:43 | disposition home or self-care (01) | LOC: LAB 06:14 | DX: G40.919 Epilepsy, unspecified, intractable, without status epilepticus (principal) | CPT/HCPCS: 36415; 80164; 82542 ==

== ENCOUNTER 2019-11-08 06:13 | Outpatient (CLI) | payer OTHER ==
[2019-11-08 09:37] LABS: POTASSIUM 4.2 mmol/L (3.6-5.2)
[2019-11-08 09:54] LABS: PLATELET COUNT 144 K/uL (142-355)
== END 2019-11-08 22:01 | disposition home or self-care (01) ==
LOC: LAB 06:13
PROVIDERS: Internal Medicine
DX: G40.919 Epilepsy, unspecified, intractable, without status epilepticus (principal); G80.9 Cerebral palsy, unspecified
CPT/HCPCS: 80053; 80164; 85027

== ENCOUNTER 2019-11-08 12:11 | Inpatient (IN) | payer OTHER | END 2019-12-09 10:14 | disposition still patient (30) | LOC: PAVC 12:11 | PROVIDERS: ADMIT Internal Medicine ==

== ENCOUNTER 2019-12-09 10:33 | Inpatient (IN) | payer OTHER | END 2020-01-09 14:03 | disposition still patient (30) | LOC: PAVC 10:33 | PROVIDERS: ADMIT Internal Medicine ==

== ENCOUNTER 2020-01-09 14:43 | Inpatient (IN) | payer OTHER | END 2020-02-08 14:09 | disposition still patient (30) | LOC: PAVC 14:43 | PROVIDERS: ADMIT Internal Medicine ==

== ENCOUNTER 2020-02-08 15:07 | Inpatient (IN) | payer OTHER | END 2020-03-10 08:00 | disposition still patient (30) | LOC: PAVC 15:07 | PROVIDERS: ADMIT Internal Medicine ==

== ENCOUNTER 2020-03-10 09:00 | Inpatient (IN) | payer OTHER | END 2020-04-09 12:25 | disposition still patient (30) | LOC: PAVC 09:00 | PROVIDERS: ADMIT Internal Medicine; ATTEND Internal Medicine ==

== ENCOUNTER 2020-03-13 07:22 | Outpatient (CLI) | payer OTHER | END 2020-03-13 21:29 | disposition home or self-care (01) | LOC: LAB 07:22 | DX: G40.919 Epilepsy, unspecified, intractable, without status epilepticus (principal); M62.81 Muscle weakness (generalized); G80.9 Cerebral palsy, unspecified | CPT/HCPCS: 80183; 82306; 83735 ==

== ENCOUNTER 2020-04-09 12:45 | Inpatient (IN) | payer OTHER | END 2020-05-10 09:48 | disposition still patient (30) | LOC: PAVC 12:45 | PROVIDERS: ADMIT Internal Medicine; ATTEND Internal Medicine ==

== ENCOUNTER 2020-05-10 10:05 | Inpatient (IN) | payer OTHER | END 2020-06-10 15:31 | disposition still patient (30) | LOC: PAVC 10:05 | PROVIDERS: ADMIT Internal Medicine; ATTEND Internal Medicine ==

== ENCOUNTER 2020-05-14 09:54 | Outpatient (CLI) | payer OTHER ==
[2020-05-14 10:17] LABS: PLATELET COUNT 158 K/uL (142-355)
[2020-05-14 10:23] LABS: POTASSIUM 3.8 mmol/L (3.6-5.2)
== END 2020-05-14 22:07 | disposition home or self-care (01) ==
LOC: LAB 09:54
PROVIDERS: ATTEND Internal Medicine
DX: G80.9 Cerebral palsy, unspecified (principal); G40.919 Epilepsy, unspecified, intractable, without status epilepticus
CPT/HCPCS: 80053; 80164; 82542; 85027

== ENCOUNTER 2020-05-25 14:46 | Outpatient (CLI) | payer OTHER | END 2020-05-25 19:56 | disposition home or self-care (01) | LOC: LAB 14:46 | PROVIDERS: ATTEND Internal Medicine | DX: G40.919 Epilepsy, unspecified, intractable, without status epilepticus (principal) | CPT/HCPCS: 36415; 80164; 82542 ==

== ENCOUNTER 2020-06-10 15:41 | Inpatient (IN) | payer OTHER | END 2020-07-08 11:16 | disposition still patient (30) | LOC: PAVC 15:41 | PROVIDERS: ADMIT Internal Medicine; ATTEND Internal Medicine ==

== ENCOUNTER 2020-07-08 11:42 | Inpatient (IN) | payer OTHER | END 2020-08-08 12:22 | disposition still patient (30) | LOC: PAVC 11:42 | PROVIDERS: ADMIT Internal Medicine; ATTEND Internal Medicine ==

== ENCOUNTER 2020-08-06 12:14 | Outpatient (CLI) | payer OTHER | END 2020-08-06 21:16 | disposition home or self-care (01) | LOC: LAB 12:14 | PROVIDERS: ATTEND Internal Medicine | DX: J95.02 Infection of tracheostomy stoma (principal) | CPT/HCPCS: 87070; 87205 ==

== ENCOUNTER 2020-08-08 13:47 | Inpatient (IN) | payer OTHER | END 2020-09-07 11:25 | disposition still patient (30) | LOC: PAVC 13:47 | PROVIDERS: ADMIT Internal Medicine; ATTEND Internal Medicine ==

== ENCOUNTER 2020-09-07 11:43 | Inpatient (IN) | payer OTHER | END 2020-10-08 15:44 | disposition still patient (30) | LOC: PAVC 11:43 | PROVIDERS: ADMIT Internal Medicine; ATTEND Internal Medicine ==

== ENCOUNTER 2020-09-09 09:24 | Outpatient (CLI) | payer OTHER | END 2020-09-09 19:15 | disposition home or self-care (01) | LOC: LAB 09:24 | PROVIDERS: ATTEND Internal Medicine | DX: G80.9 Cerebral palsy, unspecified (principal); G40.919 Epilepsy, unspecified, intractable, without status epilepticus | CPT/HCPCS: 80183; 82306; 83735 ==

== ENCOUNTER 2020-10-08 16:41 | Inpatient (IN) | payer OTHER | END 2020-11-07 08:00 | disposition still patient (30) | LOC: PAVC 16:41 | PROVIDERS: ADMIT Internal Medicine; ATTEND Internal Medicine ==

== ENCOUNTER 2020-11-07 09:00 | Inpatient (IN) | payer OTHER | END 2020-12-08 08:00 | disposition still patient (30) | LOC: PAVC 09:00 | PROVIDERS: ADMIT Internal Medicine; ATTEND Internal Medicine ==

== ENCOUNTER 2020-11-12 05:46 | Outpatient (CLI) | payer OTHER ==
[2020-11-12 12:42] LABS: PLATELET COUNT 124 K/uL (142-355)
== END 2020-11-12 19:05 | disposition home or self-care (01) ==
LOC: LAB 05:46
PROVIDERS: ATTEND Internal Medicine
DX: G80.9 Cerebral palsy, unspecified (principal); G40.919 Epilepsy, unspecified, intractable, without status epilepticus
CPT/HCPCS: 80053; 80164; 82542; 85027

== ENCOUNTER 2020-12-08 09:00 | Inpatient (IN) | payer OTHER | END 2021-01-08 13:50 | disposition still patient (30) | LOC: PAVC 09:00 | PROVIDERS: ADMIT Internal Medicine; ATTEND Internal Medicine ==

== ENCOUNTER 2021-01-08 14:07 | Inpatient (IN) | payer OTHER | END 2021-02-07 09:39 | disposition still patient (30) | LOC: PAVC 14:07 | PROVIDERS: ADMIT Internal Medicine; ATTEND Internal Medicine ==

== ENCOUNTER 2021-02-23 19:05 | Outpatient (CLI) | payer OTHER ==
[2021-02-23 19:56] LABS: PLATELET COUNT 157 K/uL (142-355)
[2021-02-23 20:04] LABS: POTASSIUM 4.4 mmol/L (3.6-5.2)
== END 2021-02-23 22:00 | disposition home or self-care (01) ==
LOC: LAB 19:05
PROVIDERS: ATTEND Internal Medicine
DX: R50.9 Fever, unspecified (principal)
CPT/HCPCS: 36415; 80053; 85027

== ENCOUNTER 2021-02-24 10:52 | Outpatient (CLI) | payer OTHER ==
[~2021-02-24 10:52] MED LIST changes: +CEFU250T2 PEG; +LORA2INJ21 IM; -LORA2INJ21 INJ; +METAMUCIL28 % PEG; -METAMUCIL28 % PO; -MULT1 OR; +MULT1 PEG; +TRILEPTAL300 MG PEG; -TRILEPTAL300 MG/5 M OR; -VALPROIC A250 MG/5 M OR; +VALPROIC A250 MG/5 M PEG
[2021-02-24 11:23] LABS: PLATELET COUNT 120 K/uL (142-355)
[2021-02-24 11:34] LABS: POTASSIUM 4.4 mmol/L (3.6-5.2)
== END 2021-02-24 20:06 | disposition home or self-care (01) ==
LOC: LAB 10:52
PROVIDERS: ATTEND Internal Medicine
DX: R50.9 Fever, unspecified (principal)
CPT/HCPCS: 36415; 80053; 85027

== ENCOUNTER 2021-02-24 12:52 | Outpatient (CLI) | payer OTHER | END 2021-02-24 20:07 | disposition home or self-care (01) | LOC: RAD 12:52 | PROVIDERS: ATTEND Internal Medicine | DX: D72.828 Other elevated white blood cell count (principal); R50.81 Fever presenting with conditions classified elsewhere ==

== ENCOUNTER 2021-02-25 14:50 | Outpatient (CLI) | payer OTHER ==
[2021-02-26] MEDS ORDERED: CLARITIN10 M1 PEG (19:46)
[2021-02-26] MEDS ORDERED: DIVA125C PEG (19:50)
[2021-02-26] MEDS ORDERED: OMEPRAZOLE DR40 MG PEG (19:54)
[2021-02-26] MEDS ORDERED: MONT10TA PEG (19:55)
[2021-02-26] MEDS ORDERED: TRILEPTAL300 MG PEG (19:57)
== END 2021-02-25 21:57 | disposition home or self-care (01) ==
LOC: LAB 14:50
PROVIDERS: ATTEND Internal Medicine
DX: N39.0 Urinary tract infection, site not specified (principal)
CPT/HCPCS: 81000

== ENCOUNTER 2021-02-26 13:35 | Inpatient (IN) | payer OTHER ==
[2021-02-26] VITALS (18 sets, daily range): BP systolic 72–115; BP diastolic 33–68; TEMP 97.8–103.8; Ht 167.6 cm; Wt 56.4 kg
[~2021-02-26] VITALS: Ht 167.6 cm; Wt 56.4 kg
[2021-02-26 14:36] LABS: PLATELET COUNT 139 K/uL (142-355)
[2021-02-26 14:42] LABS: POTASSIUM 4.1 mmol/L (3.6-5.2)
[2021-02-26] MEDS ORDERED: CLARITIN10 M1 PEG (19:46)
[2021-02-26] MEDS ORDERED: DIVA125C PEG (19:50)
[2021-02-26] MEDS ORDERED: OMEPRAZOLE DR40 MG PEG (19:54)
[2021-02-26] MEDS ORDERED: MONT10TA PEG (19:55)
[2021-02-26] MEDS ORDERED: TRILEPTAL300 MG PEG (19:57)
[2021-02-27] VITALS (24 sets, daily range): BP systolic 73–113; BP diastolic 35–68; TEMP 97.7–100.6
[2021-02-27] MEDS ORDERED: ACET650S18 RE (01:30)
[2021-02-27] MEDS ORDERED: GNP CLEARLAX17 GM PEG (01:36)
[2021-02-27] MEDS ORDERED: PERIDEX0.12 % MT (01:46)
[2021-02-27 08:14] LABS: PLATELET COUNT 163 K/uL (142-355)
[2021-02-27 08:25] LABS: POTASSIUM 4.2 mmol/L (3.6-5.2)
[2021-02-28] VITALS (24 sets, daily range): BP systolic 11–116; BP diastolic 40–88; TEMP 98.2–100.6
[2021-02-28 04:40] LABS: POTASSIUM 3.4 mmol/L (3.6-5.2)
[2021-02-28 05:16] LABS: PLATELET COUNT 159 K/uL (142-355)
[2021-03-01] VITALS (20 sets, daily range): BP systolic 11–118; BP diastolic 48–82; TEMP 97–98.8
[2021-03-01 07:57] LABS: PLATELET COUNT 238 K/uL (142-355)
[2021-03-01 08:05] LABS: POTASSIUM 3.8 mmol/L (3.6-5.2)
[2021-03-02] VITALS: BP 110/62; TEMP 98.1
[2021-03-02 02:00] VITALS: BP 114/82; TEMP 97.5
[2021-03-02 03:00] VITALS: BP 110/79; TEMP 98.6
[2021-03-02 04:00] VITALS: BP 111/88; TEMP 97.8
[2021-03-02 05:00] VITALS: BP 121/86; TEMP 97.8
[2021-03-02 07:19] LABS: POTASSIUM 3.2 mmol/L (3.6-5.2)
[2021-03-02 07:25] LABS: PLATELET COUNT 313 K/uL (142-355)
[2021-03-02 23:13] VITALS: BP 99/61
[2021-03-03] VITALS (22 sets, daily range): BP systolic 90–120; BP diastolic 41–76; TEMP 98–100
[2021-03-03 05:57] LABS: POTASSIUM 4.4 mmol/L (3.6-5.2)
[2021-03-03 06:42] LABS: PLATELET COUNT 326 K/uL (142-355)
[2021-03-04] VITALS (11 sets, daily range): BP systolic 86–100; BP diastolic 50–73; TEMP 97.6–98.5
[2021-03-04 05:28] LABS: PLATELET COUNT 353 K/uL (142-355)
[2021-03-04 05:37] LABS: POTASSIUM 3.8 mmol/L (3.6-5.2)
== END 2021-03-04 11:00 | DRG 871 ==
LOC: ED 13:49 → ICU 16:49 → PCU 03-02 19:00
PROVIDERS: Family Medicine; ADMIT Internal Medicine Endocrinology, Diabetes & Metabolism; ATTEND Internal Medicine Endocrinology, Diabetes & Metabolism
DX: A41.89 Other specified sepsis (principal); J18.8 Other pneumonia, unspecified organism; F84.0 Autistic disorder; G40.802 Other epilepsy, not intractable, without status epilepticus; Y95 Nosocomial condition; I95.89 Other hypotension; R00.0 Tachycardia, unspecified; G80.8 Other cerebral palsy; F78.A9 Other genetic related intellectual disability
CPT/HCPCS: 36415; 80048; 80053; 80202; 83605; 85007; 85027; 87040; 96360; 96361; 96365; 96366; 96375; 99285; J0132; J0456; J0696; J1200; J1650; J1885; J2060; J3370; Q9963

== ENCOUNTER 2021-03-10 07:41 | Outpatient (CLI) | payer OTHER ==
[~2021-03-10 07:41] MED LIST changes: +ACET650S18 RE; +CLARITIN10 M1 PEG; +GNP CLEARLAX17 GM PEG; +MONT10TA PEG; +OMEPRAZOLE DR40 MG PEG; +PERIDEX0.12 % MT
== END 2021-03-10 19:17 | disposition home or self-care (01) ==
LOC: LAB 07:41
PROVIDERS: ATTEND Internal Medicine
DX: G40.919 Epilepsy, unspecified, intractable, without status epilepticus (principal); G80.9 Cerebral palsy, unspecified
CPT/HCPCS: 80183; 82306; 83735

== ENCOUNTER 2021-04-09 12:43 | Inpatient (IN) | payer OTHER | END 2021-05-10 09:08 | disposition still patient (30) | LOC: PAVC 12:43 | PROVIDERS: ADMIT Internal Medicine; ATTEND Internal Medicine ==

== ENCOUNTER 2021-05-10 09:32 | Inpatient (IN) | payer OTHER | END 2021-06-10 08:58 | disposition still patient (30) | LOC: PAVC 09:32 | PROVIDERS: ADMIT Internal Medicine; ATTEND Internal Medicine ==

== ENCOUNTER 2021-05-13 06:24 | Outpatient (CLI) | payer OTHER ==
[2021-05-13 07:21] LABS: PLATELET COUNT 163 K/uL (142-355)
[2021-05-13 08:33] LABS: POTASSIUM 4.1 mmol/L (3.6-5.2)
== END 2021-05-13 18:49 | disposition home or self-care (01) ==
LOC: LAB 06:24
PROVIDERS: ATTEND Internal Medicine
DX: G80.9 Cerebral palsy, unspecified (principal)
CPT/HCPCS: 80053; 80164; 82542; 85027

== ENCOUNTER 2021-05-23 08:20 | Outpatient (CLI) | payer OTHER | END 2021-05-23 20:34 | disposition home or self-care (01) | LOC: LAB 08:20 | PROVIDERS: ATTEND Internal Medicine | DX: G40.309 Generalized idiopathic epilepsy and epileptic syndromes, not intractable, without status epilepticus (principal) | CPT/HCPCS: 36415; 82542 ==

== ENCOUNTER 2021-06-10 13:10 | Inpatient (IN) | payer OTHER | END 2021-07-08 09:09 | disposition still patient (30) | LOC: PAVC 13:10 | PROVIDERS: ADMIT Internal Medicine; ATTEND Internal Medicine ==

== ENCOUNTER 2021-07-08 14:12 | Inpatient (IN) | payer OTHER | END 2021-08-08 14:14 | disposition still patient (30) | LOC: PAVC 14:12 | PROVIDERS: ADMIT Internal Medicine; ATTEND Internal Medicine ==

== ENCOUNTER 2021-08-08 15:27 | Inpatient (IN) | payer OTHER | END 2021-09-07 10:40 | disposition still patient (30) | LOC: PAVC 15:27 | PROVIDERS: ADMIT Internal Medicine; ATTEND Internal Medicine ==

== ENCOUNTER 2021-09-07 02:34 | Inpatient (IN) | payer OTHER | END 2021-10-08 10:00 | disposition still patient (30) | LOC: PAVC 02:34 | PROVIDERS: ADMIT Internal Medicine; ATTEND Internal Medicine ==

== ENCOUNTER 2021-09-08 10:55 | Outpatient (CLI) | payer OTHER | END 2021-09-08 18:58 | disposition home or self-care (01) | LOC: LAB 10:55 | PROVIDERS: ATTEND Internal Medicine | DX: G80.9 Cerebral palsy, unspecified (principal) | CPT/HCPCS: 80183; 82306; 83735 ==

== ENCOUNTER 2021-10-08 16:11 | Inpatient (IN) | payer OTHER | END 2021-11-07 09:16 | disposition still patient (30) | LOC: PAVC 16:11 | PROVIDERS: ADMIT Internal Medicine; ATTEND Internal Medicine ==

== ENCOUNTER 2021-11-07 07:21 | Outpatient (CLI) | payer OTHER ==
[2021-11-07 08:06] LABS: PLATELET COUNT 145 K/uL (142-355)
[2021-11-07 09:13] LABS: POTASSIUM 4.3 mmol/L (3.6-5.2)
== END 2021-11-07 21:13 | disposition home or self-care (01) ==
LOC: LAB 07:21
PROVIDERS: ATTEND Internal Medicine
DX: G80.9 Cerebral palsy, unspecified (principal)
CPT/HCPCS: 80053; 80164; 82542; 85027

== ENCOUNTER 2021-11-07 13:06 | Inpatient (IN) | payer OTHER | END 2021-12-08 09:11 | disposition still patient (30) | LOC: PAVC 13:06 | PROVIDERS: ADMIT Internal Medicine; ATTEND Internal Medicine ==

== ENCOUNTER 2021-12-08 10:18 | Inpatient (IN) | payer OTHER ==
[~2021-12-08 10:18] MED LIST changes: +LEVE5MLUD PEG; -LEVETIRACET100 MG/ML PEG; -METAMUCIL28 % PEG; +[UNRECOGNIZED DRUG - OTHER] PEG
[2022-01-04] MEDS ORDERED: CLARITIN10 M1 PEG (12:25)
[2022-01-04] MEDS ORDERED: MONT10TA PEG (12:49)
[2022-01-04] MEDS ORDERED: CALCIUM + D PEG (12:59)
[2022-01-04] MEDS ORDERED: TYLENOL325 MG PEG (13:23)
[2022-01-08] MEDS ORDERED: AMOX/K CLA400 MG/5 M PEG (08:44)
== END 2022-01-08 09:13 | disposition still patient (30) ==
LOC: PAVC 10:18
PROVIDERS: ADMIT Internal Medicine; ATTEND Internal Medicine

== ENCOUNTER 2022-01-01 10:23 | Outpatient (CLI) | payer OTHER | END 2022-01-01 19:24 | disposition home or self-care (01) | LOC: LAB 10:23 | PROVIDERS: ATTEND Internal Medicine Endocrinology, Diabetes & Metabolism | DX: R50.9 Fever, unspecified (principal) | CPT/HCPCS: 81000 ==

== ENCOUNTER 2022-01-01 10:56 | Outpatient (CLI) | payer OTHER | END 2022-01-01 19:24 | disposition home or self-care (01) | LOC: RAD 10:56 | PROVIDERS: ATTEND Internal Medicine Endocrinology, Diabetes & Metabolism | DX: R50.9 Fever, unspecified (principal) ==

== ENCOUNTER 2022-01-03 20:38 | Inpatient (IN) | payer OTHER ==
[~2022-01-03] VITALS: Ht 167.6 cm; Wt 54.5 kg
[2022-01-03 20:40] VITALS: BP 113/82; TEMP 101.1
[2022-01-03 21:02] LABS: PLATELET COUNT 210 K/uL (142-355)
[2022-01-03 21:12] LABS: POTASSIUM 3.8 mmol/L (3.6-5.2)
[2022-01-03 21:30] VITALS: BP 110/78
[2022-01-03 22:30] VITALS: BP 117/85
[2022-01-03 23:30] VITALS: BP 106/65
[2022-01-04] VITALS (9 sets, daily range): BP systolic 93–110; BP diastolic 53–70; TEMP 98.2–100.3; Ht 167.6 cm; Wt 54.5 kg
[2022-01-04 10:54] LABS: PLATELET COUNT 196 K/uL (142-355)
[2022-01-04 11:04] LABS: POTASSIUM 4.3 mmol/L (3.6-5.2)
[2022-01-04] MEDS ORDERED: CLARITIN10 M1 PEG (12:25)
[2022-01-04] MEDS ORDERED: MONT10TA PEG (12:49)
[2022-01-04] MEDS ORDERED: CALCIUM + D PEG (12:59)
[2022-01-04] MEDS ORDERED: TYLENOL325 MG PEG (13:23)
[2022-01-05] VITALS (7 sets, daily range): BP systolic 85–102; BP diastolic 45–69; TEMP 97.1–100.1
[2022-01-05 05:29] LABS: PLATELET COUNT 181 K/uL (142-355)
[2022-01-05 05:48] LABS: POTASSIUM 3.7 mmol/L (3.6-5.2)
[2022-01-06] VITALS: BP 101/59; TEMP 98.6
[2022-01-06 04:00] VITALS: BP 84/45; TEMP 97.5
[2022-01-06 05:30] LABS: PLATELET COUNT 237 K/uL (142-355)
[2022-01-06 05:35] LABS: POTASSIUM 3.9 mmol/L (3.6-5.2)
[2022-01-06 08:00] VITALS: BP 96/61; TEMP 97.6
[2022-01-06 12:00] VITALS: BP 97/56; TEMP 96.5
[2022-01-06 15:59] VITALS: BP 105/57; TEMP 97.9
[2022-01-06 20:00] VITALS: BP 105/72; TEMP 98.1
[2022-01-07] VITALS: BP 106/75; TEMP 98.9
[2022-01-07 04:00] VITALS: BP 81/42; TEMP 98.4
[2022-01-07 05:25] LABS: PLATELET COUNT 299 K/uL (142-355)
[2022-01-07 08:00] VITALS: BP 92/47; TEMP 98.2
[2022-01-07 12:00] VITALS: BP 95/58; TEMP 97.7
[2022-01-07 16:00] VITALS: BP 103/67; TEMP 98.3
[2022-01-07 20:00] VITALS: BP 108/62; TEMP 97.5
[2022-01-08 00:15] VITALS: BP 102/64; TEMP 97.5
[2022-01-08 04:15] VITALS: BP 106/74; TEMP 97.6
[2022-01-08 08:00] VITALS: BP 103/65; TEMP 97.8
[2022-01-08] MEDS ORDERED: AMOX/K CLA400 MG/5 M PEG (08:44)
== END 2022-01-08 10:59 | DRG 871 ==
LOC: ED 20:38 → MED/SURG 01-04 02:00
PROVIDERS: ADMIT Family Medicine; ATTEND Internal Medicine
DX: A41.89 Other specified sepsis (principal); J18.8 Other pneumonia, unspecified organism; F84.0 Autistic disorder; G40.802 Other epilepsy, not intractable, without status epilepticus; G80.8 Other cerebral palsy; R13.19 Other dysphagia
CPT/HCPCS: 36415; 80048; 80053; 80164; 80200; 80202; 81000; 82542; 83605; 85007; 85027; 87040; 87502; 87635; 94664; 94760; 96360; 96365; 99284; J2405; J2543; J3260; J3370; U0003

== ENCOUNTER 2022-01-08 14:56 | Inpatient (IN) | payer OTHER ==
[~2022-01-08 14:56] MED LIST changes: +AMOX/K CLA400 MG/5 M PEG; +CALCIUM + D PEG; +TYLENOL325 MG PEG
== END 2022-02-07 10:38 | disposition still patient (30) ==
LOC: PAVC 14:56
PROVIDERS: ADMIT Internal Medicine Endocrinology, Diabetes & Metabolism; ATTEND Internal Medicine Endocrinology, Diabetes & Metabolism

== ENCOUNTER 2022-02-07 14:10 | Inpatient (IN) | payer OTHER | END 2022-03-10 12:14 | disposition still patient (30) | LOC: PAVC 14:10 | PROVIDERS: ADMIT Internal Medicine Endocrinology, Diabetes & Metabolism; ATTEND Internal Medicine Endocrinology, Diabetes & Metabolism ==

== ENCOUNTER 2022-03-10 14:09 | Inpatient (IN) | payer OTHER | END 2022-04-09 15:32 | disposition still patient (30) | LOC: PAVC 14:09 | PROVIDERS: ADMIT Internal Medicine Endocrinology, Diabetes & Metabolism; ATTEND Internal Medicine Endocrinology, Diabetes & Metabolism ==

== ENCOUNTER → 2022-03-10 | Outpatient (CLI) | payer OTHER | LOC: LAB 15:31 | PROVIDERS: ATTEND Internal Medicine Endocrinology, Diabetes & Metabolism | DX: G40.919 Epilepsy, unspecified, intractable, without status epilepticus (principal) | CPT/HCPCS: 80183; 82306; 83735 ==

== ENCOUNTER 2022-03-23 11:00 | Emergency (ER) | payer OTHER ==
[~2022-03-23] VITALS: Ht 167.6 cm; Wt 54.4 kg
[2022-03-23 11:03] VITALS: BP 102/68; TEMP 98.3
== END 2022-03-23 12:39 ==
LOC: ED 11:00
PROC: 0DH67UZ Insertion of Feeding Device into Stomach, Via Natural or Artificial Opening (ICD-10-PCS; principal; 2022-03-23)
DX: K94.29 Other complications of gastrostomy (principal); Y83.3 Surgical operation with formation of external stoma as the cause of abnormal reaction of the patient, or of later complication, without mention of misadventure at the time of the procedure; Y92.128 Other place in nursing home as the place of occurrence of the external cause
CPT/HCPCS: 99283

== ENCOUNTER 2022-04-09 16:11 | Inpatient (IN) | payer OTHER | END 2022-05-10 10:51 | disposition still patient (30) | LOC: PAVC 16:11 | PROVIDERS: ADMIT Internal Medicine Endocrinology, Diabetes & Metabolism; ATTEND Internal Medicine Endocrinology, Diabetes & Metabolism ==

== ENCOUNTER 2022-05-10 14:20 | Inpatient (IN) | payer OTHER | END 2022-06-10 09:28 | disposition still patient (30) | LOC: PAVC 14:20 | PROVIDERS: ADMIT Internal Medicine Endocrinology, Diabetes & Metabolism; ATTEND Internal Medicine Endocrinology, Diabetes & Metabolism ==

== ENCOUNTER 2022-05-11 10:54 | Outpatient (CLI) | payer OTHER ==
[2022-05-11 11:18] LABS: PLATELET COUNT 144 K/uL (142-355)
[2022-05-11 11:22] LABS: POTASSIUM 4.4 mmol/L (3.6-5.2)
== END 2022-05-11 19:07 | disposition home or self-care (01) ==
LOC: LAB 10:54
PROVIDERS: ATTEND Internal Medicine Endocrinology, Diabetes & Metabolism
DX: G80.9 Cerebral palsy, unspecified (principal); G40.919 Epilepsy, unspecified, intractable, without status epilepticus
CPT/HCPCS: 80053; 80164; 82542; 85027

== ENCOUNTER 2022-06-10 12:25 | Inpatient (IN) | payer OTHER | END 2022-07-08 15:21 | disposition still patient (30) | LOC: PAVC 12:25 | PROVIDERS: ADMIT Internal Medicine Endocrinology, Diabetes & Metabolism; ATTEND Internal Medicine Endocrinology, Diabetes & Metabolism ==

== ENCOUNTER 2022-06-24 20:14 | Emergency (ER) | payer OTHER ==
[~2022-06-24] VITALS: Ht 167.6 cm
[2022-06-24 20:14] VITALS: BP 120/73; TEMP 98.2
== END 2022-06-24 21:18 | disposition home or self-care (01) ==
LOC: ED 20:14
PROC: 0DH67UZ Insertion of Feeding Device into Stomach, Via Natural or Artificial Opening (ICD-10-PCS; principal; 2022-06-24)
DX: K94.29 Other complications of gastrostomy (principal); Y83.3 Surgical operation with formation of external stoma as the cause of abnormal reaction of the patient, or of later complication, without mention of misadventure at the time of the procedure; Y92.128 Other place in nursing home as the place of occurrence of the external cause
CPT/HCPCS: 99282

== ENCOUNTER 2022-06-29 14:45 | Emergency (ER) | payer OTHER ==
[~2022-06-29] VITALS: Ht 167.6 cm; Wt 45.4 kg
[2022-06-29 16:31] VITALS: BP 121/70; TEMP 98.7
== END 2022-06-29 16:51 | disposition home or self-care (01) ==
LOC: ED 14:45
PROC: 0D20XUZ Change Feeding Device in Upper Intestinal Tract, External Approach (ICD-10-PCS; principal; 2022-06-29)
DX: K94.23 Gastrostomy malfunction (principal); Y83.3 Surgical operation with formation of external stoma as the cause of abnormal reaction of the patient, or of later complication, without mention of misadventure at the time of the procedure; Y92.128 Other place in nursing home as the place of occurrence of the external cause
CPT/HCPCS: 99283

== ENCOUNTER 2022-07-08 16:11 | Inpatient (IN) | payer OTHER | END 2022-08-08 12:52 | disposition still patient (30) | LOC: PAVC 16:11 | PROVIDERS: ADMIT Internal Medicine Endocrinology, Diabetes & Metabolism; ATTEND Internal Medicine Endocrinology, Diabetes & Metabolism ==

== ENCOUNTER 2022-08-08 13:20 | Inpatient (IN) | payer OTHER | END 2022-09-07 16:42 | disposition still patient (30) | LOC: PAVC 13:20 | PROVIDERS: ADMIT Internal Medicine Endocrinology, Diabetes & Metabolism; ATTEND Internal Medicine Endocrinology, Diabetes & Metabolism ==

== ENCOUNTER 2022-09-07 09:04 | Outpatient (CLI) | payer OTHER | END 2022-09-07 19:38 | disposition home or self-care (01) | LOC: LAB 09:04 | PROVIDERS: ATTEND Internal Medicine Endocrinology, Diabetes & Metabolism | DX: G80.8 Other cerebral palsy (principal); G40.919 Epilepsy, unspecified, intractable, without status epilepticus; E55.9 Vitamin D deficiency, unspecified | CPT/HCPCS: 80183; 82306; 83735 ==

== ENCOUNTER 2022-09-07 17:41 | Inpatient (IN) | payer OTHER | END 2022-10-08 12:19 | disposition still patient (30) | LOC: PAVC 17:41 | PROVIDERS: ADMIT Internal Medicine Endocrinology, Diabetes & Metabolism; ATTEND Internal Medicine Endocrinology, Diabetes & Metabolism ==

== ENCOUNTER 2022-09-07 22:07 | Emergency (ER) | payer OTHER ==
[~2022-09-07] VITALS: Ht 167.6 cm; Wt 51.9 kg
[2022-09-07 23:39] LABS: PLATELET COUNT 243 K/uL (142-355)
[2022-09-07 23:58] LABS: POTASSIUM 4.1 mmol/L (3.6-5.2)
[2022-09-08 01:30] VITALS: TEMP 98.5
[2022-09-08 06:05] VITALS: BP 118/88
== END 2022-09-08 06:05 | disposition home or self-care (01) ==
LOC: ED 22:07
PROVIDERS: Emergency Medicine Emergency Medical Services
DX: G40.802 Other epilepsy, not intractable, without status epilepticus (principal); E86.0 Dehydration; D72.829 Elevated white blood cell count, unspecified
CPT/HCPCS: 36415; 80053; 81000; 83735; 84484; 85027; 93005; 96361; 96365; 96366; 99284; J0696; J1953

== ENCOUNTER 2022-10-08 12:27 | Inpatient (IN) | payer OTHER | END 2022-11-07 17:42 | disposition still patient (30) | LOC: PAVC 12:27 | PROVIDERS: ADMIT Internal Medicine Endocrinology, Diabetes & Metabolism; ATTEND Internal Medicine Endocrinology, Diabetes & Metabolism ==

== ENCOUNTER 2022-10-22 08:02 | Outpatient (CLI) | payer OTHER ==
[2022-10-22 08:18] LABS: PLATELET COUNT 110 K/uL (142-355)
[2022-10-22 08:26] LABS: POTASSIUM 4.5 mmol/L (3.6-5.2); SODIUM 137 mmol/L (136-145)
== END 2022-10-22 19:42 | disposition home or self-care (01) ==
LOC: LAB 08:02
PROVIDERS: ATTEND Internal Medicine
DX: G40.804 Other epilepsy, intractable, without status epilepticus (principal)
CPT/HCPCS: 80053; 80183; 80185; 82542; 85027

== ENCOUNTER 2022-10-26 07:56 | Outpatient (CLI) | payer OTHER | END 2022-10-26 18:52 | disposition home or self-care (01) | LOC: LAB 07:56 | PROVIDERS: ATTEND Internal Medicine | DX: G40.804 Other epilepsy, intractable, without status epilepticus (principal); Z51.81 Encounter for therapeutic drug level monitoring; Z79.899 Other long term (current) drug therapy | CPT/HCPCS: 36415; 80164 ==

== ENCOUNTER 2022-11-09 08:38 | Outpatient (CLI) | payer OTHER ==
[2022-11-09 09:02] LABS: PLATELET COUNT 194 K/uL (142-355)
[2022-11-09 09:36] LABS: POTASSIUM 4.6 mmol/L (3.6-5.2)
== END 2022-11-09 19:25 | disposition home or self-care (01) ==
LOC: LAB 08:38
PROVIDERS: ATTEND Internal Medicine
DX: G40.804 Other epilepsy, intractable, without status epilepticus (principal)
CPT/HCPCS: 36415; 80053; 80164; 82542; 85027

== ENCOUNTER 2022-11-19 09:12 | Outpatient (CLI) | payer OTHER | END 2022-11-19 19:20 | disposition home or self-care (01) | LOC: LAB 09:12 | PROVIDERS: ATTEND Internal Medicine | DX: G40.804 Other epilepsy, intractable, without status epilepticus (principal) | CPT/HCPCS: 36415; 82542 ==

== ENCOUNTER 2022-11-19 14:22 | Outpatient (CLI) | payer OTHER | END 2022-11-19 19:25 | disposition home or self-care (01) | LOC: CT 14:22 | PROVIDERS: ATTEND Psychiatry & Neurology Neurology | DX: R79.89 Other specified abnormal findings of blood chemistry (principal) ==

== ENCOUNTER 2023-01-17 06:07 | Emergency (ER) | payer OTHER ==
[~2023-01-17] VITALS: Ht 167.6 cm; Wt 53.5 kg
[2023-01-17 06:07] VITALS: BP 144/84; TEMP 98.7
[2023-01-17 07:03] LABS: PLATELET COUNT 248 K/uL (142-355)
[2023-01-17 07:09] LABS: POTASSIUM 3.8 mmol/L (3.6-5.2)
== END 2023-01-17 08:50 ==
LOC: ED 06:07
PROVIDERS: Family Medicine
DX: G40.901 Epilepsy, unspecified, not intractable, with status epilepticus (principal); G80.1 Spastic diplegic cerebral palsy; K21.9 Gastro-esophageal reflux disease without esophagitis; Z74.01 Bed confinement status
CPT/HCPCS: 36415; 80053; 81000; 85027; 87040; 87077; 87185; 87186; 87205; 99283; J2060